=== PATIENT | male | born 1975 | race Caucasian/White ===

== ENCOUNTER 2025-05-24 02:08 | Emergency (ER) | payer OTHER, SELFPAY ==
[2025-05-24 02:14] VITALS: BP 125/90
[2025-05-24 02:38] LABS: Hematocrit 45.3 % (39.0-52.0); Hemoglobin 16.2 g/dL (13.0-18.0); Mean Corp Hgb Conc. 35.8 g/dL (33.0-37.0); Mean Corpuscular Volume 88.1 fL (80.0-94.0); Nucleated Red Blood Cells % 0 % (-); Platelet Count 255 10^3/uL (130-400); Red Cell Dist. Width 12.1 % (11.5-14.5)
[2025-05-24 03:03] LABS: ALT (SGPT) 62 U/L (0-50); AST (SGOT) 27 U/L (17-59); Albumin 4.5 g/dl (3.5-5.0); Alkaline Phosphatase 85 U/L (38-126); Blood Urea Nitrogen 21 mg/dl (9-20); Calcium 10.2 mg/dl (8.4-10.2); Carbon Dioxide 27 mmol/L (22-30); Chloride 106 mmol/L (98-107); Glucose 111 mg/dl (70-99); Potassium 4.7 mmol/L (3.5-5.1); Sodium 139 mmol/L (135-145); Total Protein 7.0 g/dl (6.3-8.2); eGFR > 60.00
[2025-05-24 03:15] LABS: Troponin I < 0.012 ng/ml
--- NOTE | 2025-05-24 07:25 | ED.GENMED ---
History of Present Illness
General
Chief Complaint: Headache
Time Seen by Provider: 05/24/25 07:03
History of Present Illness
History of Present Illness:
49-year-old male presents the emergency department for evaluation of intermittent headache as well as dizziness and nausea and vomiting for the past 5 days. Headache resolves with use of Advil. He also notes dizziness when standing up. Risk to
his he felt too unsteady to stand at most to the hospital. His endorses that he has not slept much in the past week and she feels this may be driving his symptoms. No reported fevers, no recent URI, denies chest pain or shortness of breath.
He currently reports symptoms have resolved
Review of Systems
Review of Systems
Allergies reviewed?: Yes
All Other Systems: ROS reviewed and negative except as documented in HPI and ROS
Phy Exam
Physical Exam
Physical Exam:
GEN: Well appearing, NAD, WDWN
HEENT: Oral mucosa moist, no scleral icterus, no nasal congestion
Cardiac: Regular rate
Lung: No respiratory distress, no tachypnea
MSK: No gross deformity or injuries
Skin: Good color, no pallor or jaundice, no rashes
Neuro: AO x3; CN II-XII grossly intact. BUE strength 5/5 in all escob[place], sensation intact and symmetric. BLE strength 5/5 in all escob[place], sensation intact and symmetric. No nystagmus, gait steady
Psych: Calm, cooperative
Course
Orders/Labs/Results
Orders:
Orders
05/24/25 02:18
Electrocardiogram (*1) Urgent
Reason for Study: Vertigo / Dizzy
Head wo Contrast CT [CT Head W/o Iv Contrast] Urgent
Comment:
Reason For Exam: dizziness with 5 days of posterior headache
05/24/25 02:19
EKG- Treatment ONCE
05/24/25 02:30
Complete Blood Count/With Diff Urgent
Comprehensive Metabolic Panel Urgent
Troponin I Urgent
Abnormal Lab Results
05/24/25
02:30
MCH 31.5 H pg
(27.0-31.0)
Abs Immat Gran (auto) 0.1 H 10^3/uL
(0-0.05)
Absolute Monos (auto) 0.9 H 10^3/uL
(0.1-0.6)
Immature Gran % 1.0 H %
(0-0.5)
Monocytes % 11.5 H %
(1.7-9.3)
BUN 21 H mg/dl
(9-20)
Glucose 111 H mg/dl
(70-99)
ALT 62 H U/L
(0-50)
05/24/25 02:30
05/24/25 02:30
Vital Signs
Initial and Last Documented VS:
Initial Vital Signs
Temp Pulse Resp BP Pulse Ox
98.0 F 86 16 125/90 97
05/24/25 02:14 05/24/25 02:14 05/24/25 02:14 05/24/25 02:14 05/24/25 02:14
Last Documented Vital Signs
Temp Pulse Resp BP Pulse Ox
98.0 F 86 16 125/90 97
05/24/25 02:14 05/24/25 02:14 05/24/25 02:14 05/24/25 02:14 05/24/25 07:28
MDM/Problems Addressed
MDM/Problems Addressed:
Agree with spouse's assessment this is likely driven by sleep deprivation. Certainly considered benign positional vertigo however the patient has no provoked symptoms with head movement or upright position in the ED. Labs and CT done prior to my
evaluation all unremarkable. Discharged in stable condition recommended to attempt to increase sleep
*Pulse Oximetry
SaO2: 97
Oxygen Mode of Delivery: Room air
Patient hypoxic: no
*Critical Care Note
Total Time (30-74mins, 75-104mins- exclusive of procedures): Not Applicable
ED Attending Note
-
Portions of this chart may have been created with voice recognition software.� Occasional wrong word or��sound alike� substitutions may have occurred due to the inherent limitations of voice recognition software.
Discharge Plan
Departure
Patient Disposition: Home (Routine Discharge)
Date of Disposition: 05/24/25
Time of Disposition: 07:27
Patient with high blood pressure during this ER visit?: No
Discharge Problem:
Dizziness, Problems related to lack of adequate sleep
Instructions: Dizziness in adults - ED discharge instructions
Prescriptions:
No Action
No Current Medications
0
Interventions
Interventions:
*Risk Screen - Suicide Last Done: 05/24/25 02:14
*General Assessment Last Done: 05/24/25 07:35
*Neglect/Abuse Screening Last Done: 05/24/25 02:14
*ED- Fall Risk Assessment Last Done: 05/24/25 02:14
*ED COVID-19 Vaccine History Last Done: 05/24/25 07:35
*Nursing Disposition Last Done: 05/24/25 07:55
ED- Neurological Assessment Last Done: 05/24/25 07:35
Discharge Date and Time
Discharge Date/Time: 05/24/25 08:22
Print Language: HEBREW
== END 2025-05-24 08:22 | disposition home or self-care (01) ==
LOC: EMR 02:08
PROVIDERS: Emergency Medicine; EMERGENCY PHYSICIAN Emergency Medicine; FAMILY PHYSICIAN Family Medicine
DX: R42 Dizziness and giddiness (principal); R51.9 Headache, unspecified; R11.2 Nausea with vomiting, unspecified; Z72.820 Sleep deprivation
CPT/HCPCS: 99284; 70450; 80053; 84484; 85025; 93005